=== PATIENT | female | born 1995 | race Caucasian/White ===

== ENCOUNTER 2024-09-07 22:58 | Emergency (ER) | payer OTHER ==
[~2024-09-07] VITALS: Ht 167.6 cm; Wt 61.2 kg
[2024-09-08] MEDS ORDERED: TRIA15OI2 TP (00:36)
[2024-09-08] MEDS ORDERED: HYDR-4209 PO (00:36)
[2024-09-08] MEDS ORDERED: CLIN300C12 PO (00:36)
[2024-09-08 00:55] VITALS: BP 110/66; TEMP 98.2; O2SAT 99
[2024-09-08] MEDS ORDERED: HYDROCODONE/APAP 5-325MG TABLET PO ONE (01:00)
[2024-09-08] MEDS: HYDROCODONE/APAP 5-325MG TABLET PO ONE (01:40)
== END 2024-09-08 00:55 | disposition home or self-care (01) ==
LOC: ER 22:58
DX: L03.113 Cellulitis of right upper limb (principal); L03.114 Cellulitis of left upper limb; L30.9 Dermatitis, unspecified; R21 Rash and other nonspecific skin eruption; F42.9 Obsessive-compulsive disorder, unspecified; K58.9 Irritable bowel syndrome, unspecified
CPT/HCPCS: A4606; A4663